=== PATIENT | female | born 1995 | race African-American/Black ===

== ENCOUNTER 2020-06-03 22:52 | Emergency (ER) | payer MEDICAID ==
[~2020-06-03] VITALS: Ht 144.8 cm; Wt 68.0 kg
[2020-06-03] MEDS ORDERED: SODIUM CHLORIDE 0.9% 1,000 ML IV ONE (23:37)
[2020-06-03] MEDS ORDERED: MORPHINE SULFATE 4 MG/ML CPJ (NOT FOR IM USE) IV ONE (23:45)
[2020-06-03] MEDS ORDERED: ONDANSETRON HCL 4MG/2ML INJ IV ONE (23:45)
[2020-06-04 00:08] LABS: CLARITY URINE CLOUDY (CLEAR); COLOR URINE YELLOW (YELLOW); KETONES URINE TRACE (NEGATIVE); LEUKOCYTE ESTERASE URINE NEGATIVE (NEGATIVE); NITRITE URINE NEGATIVE (NEGATIVE); OCCULT BLOOD URINE 3+ (NEGATIVE); PH URINE 5.5 (4.5-8.0); PROTEIN URINE TRACE (NEGATIVE); SPECIFIC GRAVITY URINE 1.032 (1.005-1.030)
[2020-06-04 00:10] LABS: BASOPHILS % 1.3 % (0.0-2.0); EOSINOPHILS % 4.6 % (0.0-5.0); HEMATOCRIT. 35.7 % (36.0-48.0); HEMOGLOBIN. 11.9 g/dL (12.0-16.0); LYMPHOCYTES % 37.6 % (20.0-50.0); MEAN CORPUSCULAR HEMOGLOBIN 30.7 pg (28.0-32.0); MEAN CORPUSCULAR VOLUME 91.8 fL (81.0-99.0); MEAN PLATELET VOLUME 9.6 fl (7.4-10.4); MONOCYTES % 6.5 % (2.0-8.0); PLATELET 228 x1000/uL (130-400); RED BLOOD CELL COUNT 3.89 mill/uL (4.2-5.4); RED CELL DISTRIBUTION WIDTH 13.6 % (11.6-14.6)
[2020-06-04 00:13] LABS: CHLORIDE 109 mEq/L (98-107)
[2020-06-04 00:24] LABS: B-HCG QUANTITATIVE < 1 mIU/mL (<3)
[2020-06-04 00:34] LABS: HCG SCREEN NEGATIVE
[2020-06-04] MEDS ORDERED: KCL 20MEQ/100ML PREMIX 100 ML IV ONE (01:45)
[2020-06-04] MEDS ORDERED: IOHEXOL-300 100 ML BOTTLE ONE (02:09)
[2020-06-04 06:33] VITALS: BP 123/83
== END 2020-06-04 06:37 | disposition home or self-care (01) ==
LOC: ER 22:52
DX: N83.202 Unspecified ovarian cyst, left side (principal)
CPT/HCPCS: 36415; 74177; 76830; 76856; 80053; 81003; 81025; 84702; 84703; 85025; 86850; 86900; 86901; 93005; 96374; 96375; 99285; J2270; J2405; J3480; J7030; Q9967